=== PATIENT | male | born 1960 | race Caucasian/White ===

== ENCOUNTER → 2016-11-05 | Outpatient (REF) | payer MEDICARE, MEDICAID ==
[~2016-11-05] MED LIST: AMO250 PO; AMO500 PO; CELE40TA; CORTISSUSP OTIC; DEPA125C; FLONASESPR NASAL; PREVACID30 PO; PRILOSEC40 PO; SERO200T; SERO400T; SERZONE PO; TRAZ100T; VALIUM PO; ZANTAC300 PO; [UNRECOGNIZED DRUG - OTHER] OTIC
== END ==
LOC: M SMT 13:18
PROVIDERS: ATTEND Nurse Practitioner Women's Health
DX: R32 Unspecified urinary incontinence (principal)
CPT/HCPCS: 81001; 87086; G0463

== ENCOUNTER → 2017-03-08 | Outpatient (CLI) | payer MEDICARE, MEDICAID ==
[2017-03-08 12:14] LABS: MEAN CORPUSCULAR HGB CONC 34.1 g/dl (32.0-36.5); MEAN CORPUSCULAR VOLUME 96.7 fl (80.0-96.0); RED CELL DISTRIBUTION WIDTH 12.1 % (11.5-14.5); WHITE BLOOD COUNT 2.7 K/mm3 (4.0-10.0)
[2017-03-08 12:41] LABS: ALBUMIN 3.3 GM/DL (3.2-5.2); ALBUMIN/GLOBULIN RATIO 1.18 (1.00-1.93); ALKALINE PHOSPHATASE 36 U/L (45-117); ALT/SGPT 40 U/L (12-78); ANION GAP 5 MEQ/L (8-16); AST/SGOT 19 U/L (15-37); BILIRUBIN,TOTAL 0.6 MG/DL (0.2-1.0); BLOOD UREA NITROGEN 15 MG/DL (7-18); CALCIUM LEVEL 8.4 MG/DL (8.5-10.1); CARBON DIOXIDE LEVEL 32 MEQ/L (21-32); CHLORIDE LEVEL 104 MEQ/L (98-107); CHOLESTEROL LEVEL 131 MG/DL (<200); CREATININE FOR GFR 0.71 MG/DL (0.70-1.30); GLOMERULAR FILTRATION RATE > 60.0 (>56); GLUCOSE, FASTING 82 MG/DL (70-105); POTASSIUM SERUM 4.7 MEQ/L (3.5-5.1); SODIUM LEVEL 141 MEQ/L (136-145); TOTAL PROTEIN 6.1 GM/DL (6.4-8.2); TRIGLYCERIDES LEVEL 68 MG/DL (<150)
== END ==
LOC: M WUC 09:36
PROVIDERS: ATTEND Family Medicine
DX: Z51.81 Encounter for therapeutic drug level monitoring (principal); Z79.899 Other long term (current) drug therapy; E11.9 Type 2 diabetes mellitus without complications

== ENCOUNTER → 2017-07-02 | Outpatient (CLI) | payer MEDICARE, MEDICAID ==
[2017-07-02 12:03] LABS: PSA SCREENING 1.02 NG/ML (< 4.0)
== END ==
LOC: M SMT 09:27
DX: Z12.5 Encounter for screening for malignant neoplasm of prostate (principal)
CPT/HCPCS: G0103

== ENCOUNTER 2017-08-16 20:31 | Emergency (ER) | payer MEDICARE, MEDICAID ==
[2017-08-16] MEDS: TETANUS/DIPHTHERIA TOX ADSORB ADULT 0.5ML SYR/VIAL (90714) IM (21:51)
== END 2017-08-16 22:50 | disposition home or self-care (01) ==
LOC: M ED 20:31
DX: S01.01XA Laceration without foreign body of scalp, initial encounter (principal); Y04.0XXA Assault by unarmed brawl or fight, initial encounter; Y92.198 Other place in other specified residential institution as the place of occurrence of the external cause; E11.9 Type 2 diabetes mellitus without complications; F25.0 Schizoaffective disorder, bipolar type; F63.9 Impulse disorder, unspecified; Z79.899 Other long term (current) drug therapy
CPT/HCPCS: 90714

== ENCOUNTER 2017-12-04 08:13 | Day surgery (SDC) | payer MEDICARE, MEDICAID ==
[2017-12-04] MEDS ORDERED: NS 1,000 ML IV (09:00)
[2017-12-04] MEDS ORDERED: PROPOFOL 200 MG/20 ML VIAL As Ordered (09:24)
[2017-12-04] MEDS ORDERED: LIDOCAINE 2% INJ 100 MG/5 ML SDV (FOR ANES.) As Ordered (09:24)
== END 2017-12-04 09:50 | disposition home or self-care (01) ==
LOC: M OPP 08:13
DX: Z12.11 Encounter for screening for malignant neoplasm of colon (principal); I10 Essential (primary) hypertension; E78.5 Hyperlipidemia, unspecified; E11.9 Type 2 diabetes mellitus without complications; K21.9 Gastro-esophageal reflux disease without esophagitis; N40.1 Benign prostatic hyperplasia with lower urinary tract symptoms; F31.9 Bipolar disorder, unspecified; F41.9 Anxiety disorder, unspecified; G31.84 Mild cognitive impairment of uncertain or unknown etiology; Z79.899 Other long term (current) drug therapy; Z79.84 Long term (current) use of oral hypoglycemic drugs
CPT/HCPCS: 45378

== ENCOUNTER 2018-02-13 08:45 | Day surgery (SDC) | payer MEDICARE, MEDICAID ==
[~2018-02-13 08:45] MED LIST changes: -AMO250 PO; -AMO500 PO; -CELE40TA; -CORTISSUSP OTIC; -DEPA125C; -FLONASESPR NASAL; +LIDOCAINE 2% INJ 100 MG/5 ML SYRINGE As Ordered; -PREVACID30 PO; -PRILOSEC40 PO; +PROPOFOL 200 MG/20 ML VIAL As Ordered; -SERO200T; -SERO400T; -SERZONE PO; -TRAZ100T; -VALIUM PO; -ZANTAC300 PO; -[UNRECOGNIZED DRUG - OTHER] OTIC
[2018-02-13] MEDS: NS 1,000 ML IV (09:41)
== END 2018-02-13 10:57 | disposition home or self-care (01) ==
LOC: M OPP 08:45
DX: Z12.11 Encounter for screening for malignant neoplasm of colon (principal); K64.8 Other hemorrhoids; I10 Essential (primary) hypertension; E78.5 Hyperlipidemia, unspecified; E11.9 Type 2 diabetes mellitus without complications; K21.9 Gastro-esophageal reflux disease without esophagitis; R12 Heartburn; F41.9 Anxiety disorder, unspecified; F31.9 Bipolar disorder, unspecified; F63.9 Impulse disorder, unspecified; G31.84 Mild cognitive impairment of uncertain or unknown etiology; N40.1 Benign prostatic hyperplasia with lower urinary tract symptoms; R32 Unspecified urinary incontinence; Z79.899 Other long term (current) drug therapy
CPT/HCPCS: G0121

== ENCOUNTER → 2018-03-17 | Outpatient (CLI) | payer MEDICARE, MEDICAID ==
[2018-03-17 12:40] LABS: ESTIMATED AVERAGE GLUCOSE 111 MG/DL (60-110); HEMOGLOBIN A1c 5.5 %
[2018-03-17 12:41] LABS: ALBUMIN 3.4 GM/DL (3.2-5.2); ALKALINE PHOSPHATASE 37 U/L (45-117); ALT/SGPT 31 U/L (12-78); ANION GAP 8 MEQ/L (8-16); AST/SGOT 15 U/L (7-37); BILIRUBIN,TOTAL 0.5 MG/DL (0.2-1.0); BLOOD UREA NITROGEN 31 MG/DL (7-18); CALCIUM LEVEL 8.8 MG/DL (8.8-10.2); CARBON DIOXIDE LEVEL 29 MEQ/L (21-32); CHLORIDE LEVEL 110 MEQ/L (98-107); CREATININE FOR GFR 0.73 MG/DL (0.70-1.30); GLOMERULAR FILTRATION RATE > 60.0 (>49); GLUCOSE, FASTING 95 MG/DL (70-100); POTASSIUM SERUM 4.3 MEQ/L (3.5-5.1); SODIUM LEVEL 147 MEQ/L (136-145); TOTAL PROTEIN 6.5 GM/DL (6.4-8.2); VALPROIC ACID (DEPAKOTE) 49.7 UG/ML (50.0-100.0)
[2018-03-17 13:03] LABS: MALB URINE SIEMENS 8.5 MG/L; MAU/CREAT RATIO 4.2 MCG/MG (0.0-30.0)
== END ==
LOC: M WUC 08:45
DX: E11.9 Type 2 diabetes mellitus without complications (principal); Z79.899 Other long term (current) drug therapy
CPT/HCPCS: 82607

== ENCOUNTER → 2018-04-18 | Outpatient (CLI) | payer MEDICARE, MEDICAID ==
[2018-04-18 12:56] LABS: CHOLESTEROL LEVEL 137 MG/DL (<200); CHOLESTEROL RISK RATIO 2.075 (<5); HDL CHOLESTEROL 66 MG/DL (>40); LDL CHOLESTEROL 62 MG/DL (<100); NON-HDL-C 71 MG/DL; TRIGLYCERIDES LEVEL 46 MG/DL (<150)
== END ==
LOC: M WUC 08:58
DX: Z79.899 Other long term (current) drug therapy (principal)
CPT/HCPCS: 80061

== ENCOUNTER → 2018-10-31 | Outpatient (CLI) | payer MEDICARE, MEDICAID ==
[~2018-10-31] MED LIST changes: +AMO250 PO; +AMO500 PO; +BUPR10TASR PO; +CELE40TA PO; +CORTISSUSP OTIC; +DEPA125C; +DEPA250T32 PO; +DITR1TAB PO; +FINA5TAB2 PO; +FLONASESPR NASAL; +LATU40TA PO; -LIDOCAINE 2% INJ 100 MG/5 ML SYRINGE As Ordered; +METF-414 PO; +MINI1CAP PO; +PREVACID30 PO; +PRILOSEC40 PO; -PROPOFOL 200 MG/20 ML VIAL As Ordered; +RANI15TA PO; +RISP2TAB3 PO; +SERO200T; +SERO400T; +SERZONE PO; +TRAZ100T; +VALIUM PO; +ZANTAC300 PO; +[UNRECOGNIZED DRUG - OTHER] OTIC
[2018-10-31 18:11] LABS: ALBUMIN 3.1 GM/DL (3.2-5.2); BILIRUBIN,DIRECT 0.1 MG/DL (0.0-0.2); BILIRUBIN,TOTAL 0.3 MG/DL (0.2-1.0); TOTAL PROTEIN 6.1 GM/DL (6.4-8.2); VALPROIC ACID (DEPAKOTE) 72.8 UG/ML (50.0-100.0)
== END ==
LOC: M WUC 16:29
PROVIDERS: ATTEND Psychiatry & Neurology Psychiatry
DX: Z79.899 Other long term (current) drug therapy (principal)

== ENCOUNTER → 2018-11-06 | Outpatient (CLI) | payer MEDICARE, MEDICAID | LOC: M WUC 08:45 | PROVIDERS: ATTEND Nurse Practitioner Women's Health | DX: Z12.5 Encounter for screening for malignant neoplasm of prostate (principal) | CPT/HCPCS: 36415; G0103 ==

== ENCOUNTER → 2019-02-19 | Outpatient (CLI) | payer MEDICARE, MEDICAID ==
[2019-02-19 11:26] LABS: BASO % 0.3 % (0.0-1.0); EOS % 1.3 % (0.0-3.0); HEMATOCRIT 36.8 % (42.0-52.0); HEMOGLOBIN 12.3 g/dl (13.5-17.5); LYMPH # 1.3 10^3/uL (1.5-4.5); LYMPH % 42.8 % (24.0-44.0); MEAN CORPUSCULAR HEMOGLOBIN 31.3 pg (27.0-33.0); MEAN CORPUSCULAR HGB CONC 33.4 g/dl (32.0-36.5); MEAN CORPUSCULAR VOLUME 93.6 fl (80.0-96.0); MONO # 0.4 10^3/uL (0.0-0.8); MONO % 14.1 % (0.0-5.0); NEUTROPHILS # 1.3 10^3/uL (1.8-7.7); NEUTROPHILS % 41.2 % (36.0-66.0); PLATELET COUNT, AUTOMATED 149 10^3/uL (150-450); RED BLOOD COUNT 3.93 10^6/uL (4.30-6.10); WHITE BLOOD COUNT 3.1 10^3/uL (4.0-10.0)
[2019-02-19 11:35] LABS: ALBUMIN 3.3 GM/DL (3.2-5.2); ALT/SGPT 22 U/L (12-78); BILIRUBIN,TOTAL 0.5 MG/DL (0.2-1.0); BLOOD UREA NITROGEN 21 MG/DL (7-18); CALCIUM LEVEL 8.9 MG/DL (8.8-10.2); CARBON DIOXIDE LEVEL 30 MEQ/L (21-32); CHLORIDE LEVEL 109 MEQ/L (98-107); CHOLESTEROL LEVEL 106 MG/DL (<200); CHOLESTEROL RISK RATIO 1.682 (<5); CREATININE FOR GFR 0.72 MG/DL (0.70-1.30); GLOMERULAR FILTRATION RATE > 60.0 (>49); GLUCOSE, FASTING 101 MG/DL (70-100); HDL CHOLESTEROL 63 MG/DL (>40); LDL CHOLESTEROL 30 MG/DL (<100); NON-HDL-C 43 MG/DL; POTASSIUM SERUM 4.1 MEQ/L (3.5-5.1); SODIUM LEVEL 142 MEQ/L (136-145); TOTAL PROTEIN 6.1 GM/DL (6.4-8.2); TRIGLYCERIDES LEVEL 64 MG/DL (<150); VALPROIC ACID (DEPAKOTE) 56.3 UG/ML (50.0-100.0)
[2019-02-19 11:44] LABS: HEMOGLOBIN A1c 6.1 %
[2019-02-19 12:34] LABS: MALB URINE SIEMENS 6.6 MG/L; MAU/CREAT RATIO 5.1 MCG/MG (0.0-30.0)
== END ==
LOC: M WUC 08:39
PROVIDERS: ATTEND Family Medicine
DX: Z79.899 Other long term (current) drug therapy (principal); E11.9 Type 2 diabetes mellitus without complications

== ENCOUNTER 2019-08-12 14:15 | Emergency (ER) | payer MEDICARE, MEDICAID ==
[2019-08-12] MEDS ORDERED: CRES5TAB PO (15:33)
[2019-08-12] MEDS ORDERED: FAMO40TA3 PO (15:33)
[2019-08-12] MEDS ORDERED: WELL100T2 PO (15:33)
[2019-08-12 17:39] LABS: BASO % 0.2 % (0.0-1.0); EOS % 0.7 % (0.0-3.0); HEMATOCRIT 39.7 % (42.0-52.0); HEMOGLOBIN 13.1 g/dl (13.5-17.5); LYMPH # 1.9 10^3/uL (1.5-5.0); LYMPH % 44.5 % (24.0-44.0); MEAN CORPUSCULAR HEMOGLOBIN 31.2 pg (27.0-33.0); MEAN CORPUSCULAR VOLUME 94.5 fl (80.0-96.0); MONO # 0.5 10^3/uL (0.0-0.8); MONO % 12.6 % (0.0-5.0); NEUTROPHILS # 1.8 10^3/uL (1.5-8.5); PLATELET COUNT, AUTOMATED 183 10^3/uL (150-450); WHITE BLOOD COUNT 4.2 10^3/uL (4.0-10.0)
[2019-08-12 18:11] LABS: ALBUMIN 3.6 GM/DL (3.2-5.2); ALT/SGPT 25 U/L (12-78); BILIRUBIN,DIRECT 0.2 MG/DL (0.0-0.2); BILIRUBIN,TOTAL 0.4 MG/DL (0.2-1.0); BLOOD UREA NITROGEN 16 MG/DL (7-18); CALCIUM LEVEL 9.1 MG/DL (8.8-10.2); CARBON DIOXIDE LEVEL 30 MEQ/L (21-32); CHLORIDE LEVEL 105 MEQ/L (98-107); CK-MB VALUE MASS 2.6 NG/ML (<3.6); CPK CREATINE PHOSPHOKINASE 107 U/L (39-308); CREATININE FOR GFR 0.73 MG/DL (0.70-1.30); GLOMERULAR FILTRATION RATE > 60.0 (>49); GLUCOSE, FASTING 84 MG/DL (70-100); LIPASE 188 U/L (73-393); MB/CK RELATIVE INDEX 2.43 (< OR =4); POTASSIUM SERUM 4.3 MEQ/L (3.5-5.1); SODIUM LEVEL 143 MEQ/L (136-145); TOTAL PROTEIN 6.6 GM/DL (6.4-8.2); TROPONIN I < 0.02 NG/ML (< 0.10)
[2019-08-12 18:50] VITALS: BP 124/78
--- NOTE | 2019-08-13 05:49 | ECGEPIP ---
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
== END 2019-08-12 19:06 | disposition home or self-care (01) ==
LOC: EDBD 14:15 → M ED 14:15
DX: R07.89 Other chest pain (principal); E11.9 Type 2 diabetes mellitus without complications; F41.9 Anxiety disorder, unspecified; K21.9 Gastro-esophageal reflux disease without esophagitis; N40.0 Benign prostatic hyperplasia without lower urinary tract symptoms; R56.9 Unspecified convulsions; Z79.899 Other long term (current) drug therapy

== ENCOUNTER → 2019-08-24 | Outpatient (REF) | payer MEDICARE, MEDICAID ==
[~2019-08-24] MED LIST changes: +CRES5TAB PO; +FAMO40TA3 PO; +WELL100T2 PO
[2019-08-24 21:00] LABS: AMORPHOUS SEDIMENT LARGE (NEGATIVE); APPEARANCE, URINE TURBID (CLEAR); BACTERIA, URINE AUTO NEGATIVE (NEGATIVE); BILIRUBIN, URINE AUTO NEGATIVE (NEGATIVE); BLOOD, URINE BLOOD NEGATIVE (NEGATIVE); CALCIUM OXALATE CRYSTALS SMALL; COLOR, URINE AMBER (YELLOW); GLUCOSE, URINE (UA) AUTO NEGATIVE (NEGATIVE); KETONE, URINE AUTO TRACE mg/dL (NEGATIVE); LEUKOCYTE ESTERASE, URINE AUTO NEGATIVE (NEGATIVE); MUCUS, URINE SMALL (NEGATIVE); NITRITE, URINE AUTO NEGATIVE (NEGATIVE); PROTEIN, URINE AUTO 1+ mg/dL (NEGATIVE); RBC, URINE AUTO 1 /HPF (0-3); SPECIFIC GRAVITY URINE AUTO 1.034 (1.002-1.035); SQUAMOUS EPITHELIAL CELL UR AU 0 /HPF (0-6); WBC, URINE AUTO 0 /HPF (0-3)
== END ==
LOC: M LAB REF 20:35 → M LAB 20:35
PROVIDERS: ATTEND Family Medicine
DX: N42.9 Disorder of prostate, unspecified (principal)

== ENCOUNTER → 2019-12-29 | Outpatient (CLI) | payer MEDICARE, MEDICAID | LOC: M WUC 08:34 | PROVIDERS: ATTEND Nurse Practitioner Women's Health | DX: Z12.5 Encounter for screening for malignant neoplasm of prostate (principal) | CPT/HCPCS: 36415; G0103 ==

== ENCOUNTER → 2020-04-11 | Outpatient (CLI) | payer MEDICARE, MEDICAID ==
[2020-04-11 10:56] LABS: HEMATOCRIT 39.5 % (42.0-52.0); HEMOGLOBIN 12.7 g/dl (13.5-17.5); MEAN CORPUSCULAR HEMOGLOBIN 31.5 pg (27.0-33.0); MEAN CORPUSCULAR HGB CONC 32.2 g/dl (32.0-36.5); PLATELET COUNT, AUTOMATED 127 10^3/uL (150-450); RED BLOOD COUNT 4.03 10^6/uL (4.30-6.10)
[2020-04-11 11:22] LABS: HEMOGLOBIN A1c 5.3 %
[2020-04-11 11:23] LABS: ALBUMIN 3.2 GM/DL (3.2-5.2); ALT/SGPT 27 U/L (12-78); BILIRUBIN,TOTAL 0.5 MG/DL (0.2-1.0); BLOOD UREA NITROGEN 23 MG/DL (7-18); CALCIUM LEVEL 8.6 MG/DL (8.8-10.2); CARBON DIOXIDE LEVEL 32 MEQ/L (21-32); CHLORIDE LEVEL 107 MEQ/L (98-107); CHOLESTEROL LEVEL 107 MG/DL (<200); CHOLESTEROL RISK RATIO 1.621 (<5); CREATININE FOR GFR 0.67 MG/DL (0.70-1.30); GLOMERULAR FILTRATION RATE > 60.0 (>49); GLUCOSE, FASTING 70 MG/DL (70-100); HDL CHOLESTEROL 66 MG/DL (>40); LDL CHOLESTEROL 30 MG/DL (<100); NON-HDL-C 41 MG/DL; POTASSIUM SERUM 4.2 MEQ/L (3.5-5.1); SODIUM LEVEL 143 MEQ/L (136-145); TOTAL PROTEIN 5.8 GM/DL (6.4-8.2); TRIGLYCERIDES LEVEL 57 MG/DL (<150); VALPROIC ACID (DEPAKOTE) 75.5 UG/ML (50.0-100.0)
[2020-04-11 11:31] LABS: MAU/CREAT RATIO 5.2 MCG/MG (0.0-30.0)
[2020-04-11 11:42] LABS: HEPATITIS B SURFACE ANTIGEN NEGATIVE (NEGATIVE)
== END ==
LOC: M WUC 08:34
PROVIDERS: ATTEND Family Medicine
DX: Z11.59 Encounter for screening for other viral diseases (principal); E11.9 Type 2 diabetes mellitus without complications; Z79.899 Other long term (current) drug therapy

== ENCOUNTER → 2020-04-18 | Outpatient (CLI) | payer MEDICARE, MEDICAID ==
[2020-04-18 18:22] LABS: BASO % 0.4 % (0.0-1.0); EOS # 0.1 10^3/uL (0.0-0.5); EOS % 1.6 % (0.0-3.0); HEMATOCRIT 38.5 % (42.0-52.0); HEMOGLOBIN 12.2 g/dl (13.5-17.5); LYMPH # 2.1 10^3/uL (1.5-5.0); LYMPH % 45.8 % (24.0-44.0); MEAN CORPUSCULAR HEMOGLOBIN 30.6 pg (27.0-33.0); MEAN CORPUSCULAR HGB CONC 31.7 g/dl (32.0-36.5); MEAN CORPUSCULAR VOLUME 96.5 fl (80.0-96.0); MONO # 0.5 10^3/uL (0.0-0.8); MONO % 11.4 % (0.0-5.0); NEUTROPHILS # 1.8 10^3/uL (1.5-8.5); NEUTROPHILS % 40.4 % (36.0-66.0); PLATELET COUNT, AUTOMATED 142 10^3/uL (150-450); RED BLOOD COUNT 3.99 10^6/uL (4.30-6.10); WHITE BLOOD COUNT 4.5 10^3/uL (4.0-10.0)
== END ==
LOC: M LAB 17:21
PROVIDERS: ATTEND Family Medicine
DX: D61.818 Other pancytopenia (principal)

== ENCOUNTER → 2020-06-07 | Outpatient (CLI) | payer MEDICARE, MEDICAID ==
[~2020-06-07] MED LIST changes: +RISP-9 PO; -RISP2TAB3 PO
[2020-06-07 11:59] LABS: BASO % 0.3 % (0.0-1.0); EOS % 1.4 % (0.0-3.0); HEMATOCRIT 38.6 % (42.0-52.0); HEMOGLOBIN 12.5 g/dl (13.5-17.5); LYMPH # 1.2 10^3/uL (1.5-5.0); LYMPH % 42.2 % (24.0-44.0); MEAN CORPUSCULAR HEMOGLOBIN 31.3 pg (27.0-33.0); MEAN CORPUSCULAR HGB CONC 32.4 g/dl (32.0-36.5); MEAN CORPUSCULAR VOLUME 96.5 fl (80.0-96.0); MONO # 0.3 10^3/uL (0.0-0.8); MONO % 10.5 % (0.0-5.0); NEUTROPHILS # 1.3 10^3/uL (1.5-8.5); NEUTROPHILS % 45.6 % (36.0-66.0); PLATELET COUNT, AUTOMATED 151 10^3/uL (150-450); WHITE BLOOD COUNT 2.9 10^3/uL (4.0-10.0)
[2020-06-07 12:42] LABS: BLOOD UREA NITROGEN 19 MG/DL (7-18); CALCIUM LEVEL 8.7 MG/DL (8.8-10.2); CARBON DIOXIDE LEVEL 27 MEQ/L (21-32); CHLORIDE LEVEL 108 MEQ/L (98-107); CREATININE FOR GFR 0.72 MG/DL (0.70-1.30); GLOMERULAR FILTRATION RATE > 60.0 (>49); GLUCOSE, FASTING 127 MG/DL (70-100); SODIUM LEVEL 139 MEQ/L (136-145)
== END ==
LOC: M WUC 09:10
PROVIDERS: ATTEND Family Medicine
DX: D61.818 Other pancytopenia (principal); R79.89 Other specified abnormal findings of blood chemistry

== ENCOUNTER → 2020-09-02 | Outpatient (CLI) | payer MEDICARE, MEDICAID ==
[~2020-09-02] MED LIST changes: +COPP2TAB PO; +CYCL5TAB PO; +OMEP-218 PO
[2020-09-02 09:51] LABS: HEMOGLOBIN A1c 5.3 %
[2020-09-02 09:55] LABS: ALT/SGPT 31 U/L (12-78); BILIRUBIN,TOTAL 0.5 MG/DL (0.2-1.0); BLOOD UREA NITROGEN 23 MG/DL (7-18); CALCIUM LEVEL 8.7 MG/DL (8.8-10.2); CARBON DIOXIDE LEVEL 33 MEQ/L (21-32); CHLORIDE LEVEL 105 MEQ/L (98-107); CHOLESTEROL LEVEL 132 MG/DL (<200); CHOLESTEROL RISK RATIO 1.913 (<5); CREATININE FOR GFR 0.82 MG/DL (0.70-1.30); GLOMERULAR FILTRATION RATE > 60.0 (>49); GLUCOSE, FASTING 82 MG/DL (70-100); HDL CHOLESTEROL 69 MG/DL (>40); LDL CHOLESTEROL 51 MG/DL (<100); NON-HDL-C 63 MG/DL; POTASSIUM SERUM 4.6 MEQ/L (3.5-5.1); SODIUM LEVEL 140 MEQ/L (136-145); TOTAL PROTEIN 6.6 GM/DL (6.4-8.2); TRIGLYCERIDES LEVEL 60 MG/DL (<150)
[2020-09-02 09:56] LABS: ALBUMIN 3.6 GM/DL (3.2-5.2)
== END ==
LOC: M LAB 09:03
PROVIDERS: ATTEND Internal Medicine
DX: E78.5 Hyperlipidemia, unspecified (principal); E11.9 Type 2 diabetes mellitus without complications

== ENCOUNTER → 2021-02-13 | Outpatient (REF) | payer MEDICARE, MEDICAID | LOC: M LAB REF 09:01 | PROVIDERS: ATTEND Nurse Practitioner Women's Health | DX: Z12.5 Encounter for screening for malignant neoplasm of prostate (principal) ==

== ENCOUNTER → 2021-04-02 | Outpatient (CLI) | payer MEDICARE, MEDICAID ==
[~2021-04-02] MED LIST changes: +HYDR50TA70; +RISP-7
[2021-04-02 16:42] LABS: ALBUMIN 3.2 GM/DL (3.2-5.2); ALT/SGPT 35 U/L (12-78); BILIRUBIN,TOTAL 0.3 MG/DL (0.2-1.0); BLOOD UREA NITROGEN 27 MG/DL (7-18); CALCIUM LEVEL 8.8 MG/DL (8.8-10.2); CARBON DIOXIDE LEVEL 31 MEQ/L (21-32); CHLORIDE LEVEL 105 MEQ/L (98-107); CHOLESTEROL LEVEL 121 MG/DL (<200); CHOLESTEROL RISK RATIO 1.728 (<5); CREATININE FOR GFR 0.67 MG/DL (0.70-1.30); GLOMERULAR FILTRATION RATE > 60.0 (>49); GLUCOSE, FASTING 92 MG/DL (70-100); HDL CHOLESTEROL 70 MG/DL (>40); LDL CHOLESTEROL 25 MG/DL (<100); NON-HDL-C 51 MG/DL; POTASSIUM SERUM 4.3 MEQ/L (3.5-5.1); SODIUM LEVEL 142 MEQ/L (136-145); TOTAL PROTEIN 6.2 GM/DL (6.4-8.2); TRIGLYCERIDES LEVEL 128 MG/DL (<150)
== END ==
LOC: M WUC 14:29
PROVIDERS: ATTEND Internal Medicine
DX: E78.5 Hyperlipidemia, unspecified (principal)

== ENCOUNTER → 2021-04-04 | Outpatient (CLI) | payer MEDICARE, MEDICAID ==
--- NOTE | 2021-04-04 12:33 | REP ---
INDICATION: PAIN COMPARISON: None. TECHNIQUE: Internal rotation, external rotation, and Y view. FINDINGS: Cortical irregularity and spurring along with small 5 mm corticated density noted at the acromioclavicular joint. The subacromial space is normal. The glenohumeral joint is essentially age-appropriate. There is no evidence for acute fracture or dislocation. 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 <Electronically signed by Geovani Boyd > 04/04/21 [id number]
== END ==
LOC: M WUC 11:30
PROVIDERS: ATTEND Internal Medicine
DX: M25.512 Pain in left shoulder (principal)

== ENCOUNTER → 2021-06-20 | Outpatient (CLI) | payer MEDICARE, MEDICAID ==
[2021-06-20 16:21] LABS: BASO % 0.2 % (0.0-1.0); EOS # 0.1 10^3/uL (0.0-0.5); EOS % 1.7 % (0.0-3.0); HEMATOCRIT 40.8 % (42.0-52.0); HEMOGLOBIN 13.2 g/dl (13.5-17.5); LYMPH # 1.9 10^3/uL (1.5-5.0); LYMPH % 47.4 % (24.0-44.0); MEAN CORPUSCULAR HEMOGLOBIN 30.8 pg (27.0-33.0); MEAN CORPUSCULAR HGB CONC 32.4 g/dl (32.0-36.5); MEAN CORPUSCULAR VOLUME 95.1 fl (80.0-96.0); MONO # 0.5 10^3/uL (0.0-0.8); MONO % 13.5 % (2.0-8.0); NEUTROPHILS # 1.5 10^3/uL (1.5-8.5); PLATELET COUNT, AUTOMATED 145 10^3/uL (150-450); RED BLOOD COUNT 4.29 10^6/uL (4.30-6.10)
[2021-06-20 16:40] LABS: HEMOGLOBIN A1c 5.4 %
[2021-06-20 16:53] LABS: ALBUMIN 3.4 GM/DL (3.2-5.2); ALT/SGPT 29 U/L (12-78); BILIRUBIN,TOTAL 0.4 MG/DL (0.2-1.0); BLOOD UREA NITROGEN 21 MG/DL (7-18); CALCIUM LEVEL 8.9 MG/DL (8.8-10.2); CARBON DIOXIDE LEVEL 33 MEQ/L (21-32); CHLORIDE LEVEL 107 MEQ/L (98-107); CHOLESTEROL LEVEL 121 MG/DL (<200); CREATININE FOR GFR 0.81 MG/DL (0.70-1.30); GLOMERULAR FILTRATION RATE > 60.0 (>49); GLUCOSE, FASTING 72 MG/DL (70-100); HDL CHOLESTEROL 63 MG/DL (>40); LDL CHOLESTEROL 38 MG/DL (<100); NON-HDL-C 58 MG/DL; POTASSIUM SERUM 4.4 MEQ/L (3.5-5.1); SODIUM LEVEL 142 MEQ/L (136-145); TOTAL PROTEIN 6.3 GM/DL (6.4-8.2); TRIGLYCERIDES LEVEL 100 MG/DL (<150); VALPROIC ACID (DEPAKOTE) 92.2 UG/ML (50.0-100.0)
[2021-06-20 16:59] LABS: PROLACTIN 30.7 NG/ML (2.1-17.7)
== END ==
LOC: M WUC 10:31
PROVIDERS: ATTEND Physician Assistant
DX: Z79.899 Other long term (current) drug therapy (principal)

== ENCOUNTER → 2021-08-27 | Outpatient (CLI) | payer MEDICARE, MEDICAID ==
[~2021-08-27] MED LIST changes: -LATU40TA PO; +LATU40TA2 PO; +OMEP-173 PO; -OMEP-218 PO
== END ==
LOC: M WUC 11:44
PROVIDERS: ATTEND Nurse Practitioner Women's Health
DX: R97.20 Elevated prostate specific antigen [PSA] (principal)

== ENCOUNTER 2021-10-01 10:25 | Emergency (ER) | payer MEDICARE, MEDICAID ==
[~2021-10-01] VITALS: Ht 177.8 cm; Wt 82.0 kg
[~2021-10-01 10:25] MED LIST changes: -HYDR50TA70; +HYDR50TA70 PO; -RISP-7; +RISP-7 PO
[2021-10-01 13:13] LABS: HEMATOCRIT 38.9 % (42.0-52.0); HEMOGLOBIN 13.7 g/dl (13.5-17.5); MEAN CORPUSCULAR HEMOGLOBIN 32.2 pg (27.0-33.0); MEAN CORPUSCULAR HGB CONC 35.2 g/dl (32.0-36.5); MEAN CORPUSCULAR VOLUME 91.5 fl (80.0-96.0); PLATELET COUNT, AUTOMATED 186 10^3/uL (150-450); RED BLOOD COUNT 4.25 10^6/uL (4.30-6.10); WHITE BLOOD COUNT 4.1 10^3/uL (4.0-10.0)
[2021-10-01 13:43] LABS: ACETAMINOPHEN LEVEL < 2.0 UG/ML (10.0-30.0); ALBUMIN 3.4 GM/DL (3.2-5.2); ALT/SGPT 25 U/L (12-78); BILIRUBIN,DIRECT 0.2 MG/DL (0.0-0.2); BILIRUBIN,TOTAL 0.6 MG/DL (0.2-1.0); BLOOD UREA NITROGEN 13 MG/DL (7-18); CALCIUM LEVEL 8.6 MG/DL (8.8-10.2); CARBON DIOXIDE LEVEL 28 MEQ/L (21-32); CHLORIDE LEVEL 108 MEQ/L (98-107); CREATININE FOR GFR 0.69 MG/DL (0.70-1.30); ETHYL ALCOHOL (ETHANOL) < 0.003 % (0.000-0.010); GLOMERULAR FILTRATION RATE > 60.0 (>49); GLUCOSE, FASTING 95 MG/DL (70-100); POTASSIUM SERUM 4.1 MEQ/L (3.5-5.1); SALICYLATE LEVEL < 1.7 MG/DL (5.0-30.0); SODIUM LEVEL 140 MEQ/L (136-145); TOTAL PROTEIN 6.3 GM/DL (6.4-8.2)
[2021-10-01 13:44] LABS: AMPHETAMINES LEVEL URINE NEGATIVE (NEGATIVE); BARBITURATES URINE NEGATIVE (NEGATIVE); BENZODIAZEPINES URINE NEGATIVE (NEGATIVE); CANNABINOIDS URINE NEGATIVE (NEGATIVE); COCAINE METABOLITE URINE NEGATIVE (NEGATIVE); METHADONE URINE NEGATIVE (NEGATIVE); OPIATES URINE NEGATIVE (NEGATIVE); PHENCYCLIDINE URINE NEGATIVE (NEGATIVE)
[2021-10-01 13:48] LABS: RSV AMPLIFICATION NEGATIVE (NEGATIVE)
[2021-10-01] MEDS ORDERED: DIVA250T7 PO (14:39)
[2021-10-01] MEDS ORDERED: OXYB10TA23 PO (14:39)
[2021-10-01] MEDS ORDERED: CITA20TA7 PO (14:39)
[2021-10-01] MEDS ORDERED: SYST1SOL4 OU (14:39)
[2021-10-01] MEDS ORDERED: RISP-9 PO (14:39)
[2021-10-01] MEDS ORDERED: COPP2CAP PO (14:39)
[2021-10-01] MEDS ORDERED: SENN-80 PO (14:39)
[2021-10-01] MEDS ORDERED: HOME MED LIST COMPLETE! XX SCH (14:45)
[2021-10-01 20:39] LABS: VALPROIC ACID (DEPAKOTE) 89.9 UG/ML (50.0-100.0)
[2021-10-01] MEDS ORDERED: PRAZOSIN 1 MG CAP PO ONE (22:20)
[2021-10-01] MEDS ORDERED: DIVALPROEX 250MG *ER* TAB PO ONE (22:20)
[2021-10-01] MEDS ORDERED: hydrOXYzine 50 MG TAB PO ONE (22:20)
[2021-10-01] MEDS ORDERED: FINASTERIDE 5MG TAB PO ONE (22:20)
[2021-10-01] MEDS ORDERED: ROSUVASTATIN 10 MG TAB (CRESTOR) PO ONE (22:20)
[2021-10-01] MEDS ORDERED: oxyBUTYnin *DITROPAN XL* 5 MG TABCR PO ONE (22:20)
[2021-10-01] MEDS ORDERED: risperiDONE 2 MG TAB PO ONE (22:20)
[2021-10-01] MEDS ORDERED: buPROPion (WELLBUTRIN SR) 100 MG SR TAB PO ONE (22:20)
[2021-10-01 22:56] VITALS: BP 113/63
[2021-10-02] MEDS ORDERED: buPROPion (WELLBUTRIN SR) 100 MG SR TAB PO SCH (09:00)
[2021-10-02] MEDS ORDERED: OMEPRAZOLE 20MG CAP PO ONE (10:20)
[2021-10-02] MEDS ORDERED: DIVALPROEX 250MG *ER* TAB PO ONE (10:20)
[2021-10-02] MEDS ORDERED: risperiDONE 0.5 MG TAB PO ONE (10:20)
[2021-10-02 15:39] VITALS: BP 104/62
== END 2021-10-02 15:43 ==
LOC: M ED 10:25
DX: R45.851 Suicidal ideations (principal); F20.9 Schizophrenia, unspecified; E11.9 Type 2 diabetes mellitus without complications; E78.5 Hyperlipidemia, unspecified; K21.9 Gastro-esophageal reflux disease without esophagitis; F79 Unspecified intellectual disabilities; Z79.899 Other long term (current) drug therapy

== ENCOUNTER → 2022-01-09 | Outpatient (REF) | payer MEDICARE, MEDICAID ==
[~2022-01-09] MED LIST changes: +BUSP5TA PO; +CITA20TA7 PO; +COPP2CAP PO; +DIVA250T7 PO; +DOCU100C16 PO; +OXYB10TA23 PO; +PATIENT COMMENT; +SENN-80 PO; +SYST1SOL4 OU; +SYSTANE; +SYSTOIN TOP
[2022-01-09 15:58] LABS: APPEARANCE, URINE CLEAR (CLEAR); BACTERIA, URINE AUTO NEGATIVE (NEGATIVE); BILIRUBIN, URINE AUTO NEGATIVE (NEGATIVE); BLOOD, URINE BLOOD NEGATIVE (NEGATIVE); COLOR, URINE YELLOW (YELLOW); GLUCOSE, URINE (UA) AUTO 1+ mg/dL (NEGATIVE); KETONE, URINE AUTO TRACE mg/dL (NEGATIVE); LEUKOCYTE ESTERASE, URINE AUTO NEGATIVE (NEGATIVE); NITRITE, URINE AUTO NEGATIVE (NEGATIVE); PROTEIN, URINE AUTO NEGATIVE (NEGATIVE); RBC, URINE AUTO 0 /HPF (0-3); SPECIFIC GRAVITY URINE AUTO 1.023 (1.002-1.035); SQUAMOUS EPITHELIAL CELL UR AU 0 /HPF (0-6); UROBILINOGEN, URINE AUTO 0.2 mg/dL (0.0-2.0); WBC, URINE AUTO 0 /HPF (0-3)
== END ==
LOC: M SMT 15:02
PROVIDERS: ATTEND Nurse Practitioner Women's Health
DX: R39.15 Urgency of urination (principal)

== ENCOUNTER 2022-01-16 11:01 | Inpatient (IN) | payer MEDICARE, MEDICAID ==
[~2022-01-16] VITALS: Ht 177.8 cm; Wt 90.0 kg
[~2022-01-16 11:01] MED LIST changes: -DOCU100C16 PO; -PATIENT COMMENT; -SYSTANE; -SYSTOIN TOP
[2022-01-16 11:54] LABS: HEMATOCRIT 38.7 % (42.0-52.0); HEMOGLOBIN 13.1 g/dl (13.5-17.5); MEAN CORPUSCULAR HEMOGLOBIN 30.7 pg (27.0-33.0); MEAN CORPUSCULAR HGB CONC 33.9 g/dl (32.0-36.5); MEAN CORPUSCULAR VOLUME 90.6 fl (80.0-96.0); PLATELET COUNT, AUTOMATED 196 10^3/uL (150-450); RED BLOOD COUNT 4.27 10^6/uL (4.30-6.10); WHITE BLOOD COUNT 3.5 10^3/uL (4.0-10.0)
[2022-01-16 12:26] LABS: ACETAMINOPHEN LEVEL 4.5 UG/ML (10.0-30.0); ALBUMIN 3.5 GM/DL (3.2-5.2); ALT/SGPT 17 U/L (12-78); BILIRUBIN,DIRECT 0.1 MG/DL (0.0-0.2); BILIRUBIN,TOTAL 0.4 MG/DL (0.2-1.0); BLOOD UREA NITROGEN 20 MG/DL (7-18); CARBON DIOXIDE LEVEL 27 MEQ/L (21-32); CHLORIDE LEVEL 110 MEQ/L (98-107); CREATININE FOR GFR 0.77 MG/DL (0.70-1.30); ETHYL ALCOHOL (ETHANOL) < 0.003 % (0.000-0.010); GLOMERULAR FILTRATION RATE > 60.0 (>49); GLUCOSE, FASTING 111 MG/DL (70-100); POTASSIUM SERUM 4.5 MEQ/L (3.5-5.1); SALICYLATE LEVEL < 1.7 MG/DL (5.0-30.0); SODIUM LEVEL 141 MEQ/L (136-145); TOTAL PROTEIN 6.5 GM/DL (6.4-8.2)
[2022-01-16 12:30] LABS: RSV AMPLIFICATION NEGATIVE (NEGATIVE)
[2022-01-16 12:32] LABS: AMPHETAMINES LEVEL URINE NEGATIVE (NEGATIVE); BARBITURATES URINE NEGATIVE (NEGATIVE); BENZODIAZEPINES URINE NEGATIVE (NEGATIVE); CANNABINOIDS URINE NEGATIVE (NEGATIVE); COCAINE METABOLITE URINE NEGATIVE (NEGATIVE); METHADONE URINE NEGATIVE (NEGATIVE); OPIATES URINE NEGATIVE (NEGATIVE); PHENCYCLIDINE URINE NEGATIVE (NEGATIVE)
[2022-01-16] MEDS ORDERED: DOCU100C16 PO (19:46)
[2022-01-16] MEDS ORDERED: SYSTOIN TOP (19:46)
[2022-01-16] MEDS ORDERED: SYSTANE (19:46)
[2022-01-16] MEDS ORDERED: PATIENT COMMENT (19:51)
[2022-01-16] MEDS ORDERED: HOME MED LIST COMPLETE! XX SCH (19:55)
[2022-01-17] MEDS ORDERED: KETOROLAC 30 MG/ML 1ML VIAL IM ONE (08:10)
[2022-01-17 14:28] VITALS: BP 118/72
[2022-01-17] MEDS ORDERED: traZODone 50 MG TAB PO PRN (14:30)
[2022-01-17] MEDS ORDERED: MAALOX 30 ML SUSP *UDC PO PRN (14:30)
[2022-01-17] MEDS ORDERED: MOM 30ML SUSPENSION UDC PO PRN (14:30)
[2022-01-17] MEDS: ACETAMINOPHEN TAB 650MG DOSE (2X325MG) PO PRN (14:56)
[2022-01-17 17:51] LABS: HEMOGLOBIN A1c 6.2 %
[2022-01-17] MEDS: DOCUSATE SODIUM 100MG CAPSULE PO SCH (21:15)
[2022-01-17] MEDS: FINASTERIDE 5MG TAB PO SCH (21:15)
[2022-01-17] MEDS: ROSUVASTATIN 10 MG TAB (CRESTOR) PO SCH (21:15)
[2022-01-17] MEDS: risperiDONE 2 MG TAB PO SCH (21:16)
[2022-01-17] MEDS: DIVALPROEX 250MG *ER* TAB PO SCH (21:16)
[2022-01-17] MEDS: SENNA 8.6 MG TAB (SENOKOT) PO SCH (21:16)
[2022-01-17] MEDS: PRAZOSIN 1 MG CAP PO SCH (21:16)
[2022-01-17] MEDS: buPROPion (WELLBUTRIN SR) 100 MG SR TAB PO SCH (21:16)
[2022-01-17] MEDS: busPIRone 5 MG TAB PO SCH (21:16)
[2022-01-17] MEDS: oxyBUTYnin *DITROPAN XL* 5 MG TABCR PO SCH (21:16)
[2022-01-18 06:17] VITALS: BP 142/72
[2022-01-18] MEDS ORDERED: risperiDONE 0.5 MG TAB PO SCH (09:00)
[2022-01-18] MEDS: NICOTINE 21MG/24HR 1 EA TRANSDERMAL TD SCH (09:00)
[2022-01-18] MEDS: buPROPion (WELLBUTRIN SR) 100 MG SR TAB PO SCH ×2 (09:49→21:14)
[2022-01-18] MEDS: busPIRone 5 MG TAB PO SCH ×2 (09:49→21:16)
[2022-01-18] MEDS: OMEPRAZOLE 20MG CAP PO SCH (09:49)
[2022-01-18] MEDS: SENNA 8.6 MG TAB (SENOKOT) PO SCH ×2 (09:49→21:14)
[2022-01-18] MEDS: DIVALPROEX 250MG *ER* TAB PO SCH ×2 (09:49→21:14)
[2022-01-18] MEDS: DOCUSATE SODIUM 100MG CAPSULE PO SCH ×2 (09:49→21:00)
[2022-01-18] MEDS: ACETAMINOPHEN TAB 650MG DOSE (2X325MG) PO PRN (12:32)
[2022-01-18] MEDS: metFORMIN (GLUCOPHAGE) 500MG TAB PO SCH (17:34)
[2022-01-18 18:49] VITALS: BP 127/61
[2022-01-18] MEDS: oxyBUTYnin *DITROPAN XL* 5 MG TABCR PO SCH (21:14)
[2022-01-18] MEDS: PRAZOSIN 1 MG CAP PO SCH (21:14)
[2022-01-18] MEDS: FINASTERIDE 5MG TAB PO SCH (21:14)
[2022-01-18] MEDS: BENZTROPINE 0.5 MG TAB PO SCH (21:14)
[2022-01-18] MEDS: risperiDONE 2 MG TAB PO SCH (21:16)
[2022-01-18] MEDS: ROSUVASTATIN 10 MG TAB (CRESTOR) PO SCH (21:16)
[2022-01-19 07:08] VITALS: BP 119/62
[2022-01-19] MEDS: NICOTINE 21MG/24HR 1 EA TRANSDERMAL TD SCH (09:00)
[2022-01-19] MEDS: buPROPion (WELLBUTRIN SR) 100 MG SR TAB PO SCH ×2 (10:30→20:37)
[2022-01-19] MEDS: DOCUSATE SODIUM 100MG CAPSULE PO SCH ×2 (10:30→20:38)
[2022-01-19] MEDS: BENZTROPINE 0.5 MG TAB PO SCH ×2 (10:30→20:37)
[2022-01-19] MEDS: DIVALPROEX 250MG *ER* TAB PO SCH ×2 (10:30→20:37)
[2022-01-19] MEDS: busPIRone 5 MG TAB PO SCH ×2 (10:31→20:37)
[2022-01-19] MEDS: SENNA 8.6 MG TAB (SENOKOT) PO SCH ×2 (10:31→20:37)
[2022-01-19] MEDS: risperiDONE 0.5 MG TAB PO SCH (10:31)
[2022-01-19] MEDS: ACETAMINOPHEN TAB 650MG DOSE (2X325MG) PO PRN (10:31)
[2022-01-19] MEDS: OMEPRAZOLE 20MG CAP PO SCH (10:32)
[2022-01-19] MEDS: metFORMIN (GLUCOPHAGE) 500MG TAB PO SCH ×2 (10:32→18:26)
[2022-01-19 17:55] VITALS: BP 117/63
[2022-01-19] MEDS: FINASTERIDE 5MG TAB PO SCH (20:37)
[2022-01-19] MEDS: ROSUVASTATIN 10 MG TAB (CRESTOR) PO SCH (20:38)
[2022-01-19] MEDS: risperiDONE 2 MG TAB PO SCH (20:38)
[2022-01-19] MEDS: oxyBUTYnin *DITROPAN XL* 5 MG TABCR PO SCH (20:38)
[2022-01-19] MEDS: PRAZOSIN 1 MG CAP PO SCH (20:38)
[2022-01-20 05:55] VITALS: BP 131/81
[2022-01-20] MEDS: NICOTINE 21MG/24HR 1 EA TRANSDERMAL TD SCH ×2 (09:00→09:12)
[2022-01-20] MEDS: SENNA 8.6 MG TAB (SENOKOT) PO SCH ×2 (09:12→20:56)
[2022-01-20] MEDS: buPROPion (WELLBUTRIN SR) 100 MG SR TAB PO SCH ×2 (09:12→20:57)
[2022-01-20] MEDS: BENZTROPINE 0.5 MG TAB PO SCH ×2 (09:13→20:56)
[2022-01-20] MEDS: DIVALPROEX 250MG *ER* TAB PO SCH ×2 (09:13→20:57)
[2022-01-20] MEDS: risperiDONE 0.5 MG TAB PO SCH (09:13)
[2022-01-20] MEDS: DOCUSATE SODIUM 100MG CAPSULE PO SCH ×2 (09:13→20:56)
[2022-01-20] MEDS: OMEPRAZOLE 20MG CAP PO SCH (09:13)
[2022-01-20] MEDS: metFORMIN (GLUCOPHAGE) 500MG TAB PO SCH ×2 (09:14→17:22)
[2022-01-20] MEDS: busPIRone 5 MG TAB PO SCH ×2 (09:15→20:58)
[2022-01-20 18:00] VITALS: BP 130/65
[2022-01-20] MEDS: PRAZOSIN 1 MG CAP PO SCH (20:55)
[2022-01-20] MEDS: FINASTERIDE 5MG TAB PO SCH (20:55)
[2022-01-20] MEDS: oxyBUTYnin *DITROPAN XL* 5 MG TABCR PO SCH (20:55)
[2022-01-20] MEDS: risperiDONE 2 MG TAB PO SCH (20:57)
[2022-01-20] MEDS: ROSUVASTATIN 10 MG TAB (CRESTOR) PO SCH (21:02)
[2022-01-21 06:49] VITALS: BP 112/62
[2022-01-21] MEDS ORDERED: risperiDONE LONG-ACTING 37.5 MG/2 ML INJ (J2794 PER 0.5MG) IM SCH (09:00)
[2022-01-21] MEDS: OMEPRAZOLE 20MG CAP PO SCH (09:37)
[2022-01-21] MEDS: SENNA 8.6 MG TAB (SENOKOT) PO SCH ×2 (09:37→21:58)
[2022-01-21] MEDS: buPROPion (WELLBUTRIN SR) 100 MG SR TAB PO SCH ×2 (09:37→21:59)
[2022-01-21] MEDS: BENZTROPINE 0.5 MG TAB PO SCH ×2 (09:37→21:58)
[2022-01-21] MEDS: DOCUSATE SODIUM 100MG CAPSULE PO SCH ×2 (09:37→21:57)
[2022-01-21] MEDS: busPIRone 5 MG TAB PO SCH ×2 (09:37→21:58)
[2022-01-21] MEDS: DIVALPROEX 250MG *ER* TAB PO SCH ×2 (09:38→21:58)
[2022-01-21] MEDS: metFORMIN (GLUCOPHAGE) 500MG TAB PO SCH ×2 (09:46→18:00)
[2022-01-21 18:00] VITALS: BP 119/68
[2022-01-21] MEDS: ROSUVASTATIN 10 MG TAB (CRESTOR) PO SCH (21:57)
[2022-01-21 21:58] VITALS: BP 119/68
[2022-01-21] MEDS: oxyBUTYnin *DITROPAN XL* 5 MG TABCR PO SCH (21:58)
[2022-01-21] MEDS: PRAZOSIN 1 MG CAP PO SCH (21:58)
[2022-01-21] MEDS: risperiDONE 2 MG TAB PO SCH (21:58)
[2022-01-21] MEDS: FINASTERIDE 5MG TAB PO SCH (21:59)
[2022-01-22 06:23] VITALS: BP 135/82
[2022-01-22] MEDS: busPIRone 5 MG TAB PO SCH (09:39)
[2022-01-22] MEDS: BENZTROPINE 0.5 MG TAB PO SCH (09:39)
[2022-01-22] MEDS: SENNA 8.6 MG TAB (SENOKOT) PO SCH (09:39)
[2022-01-22] MEDS: OMEPRAZOLE 20MG CAP PO SCH (09:39)
[2022-01-22] MEDS: DOCUSATE SODIUM 100MG CAPSULE PO SCH (09:39)
[2022-01-22] MEDS: buPROPion (WELLBUTRIN SR) 100 MG SR TAB PO SCH (09:39)
[2022-01-22] MEDS: DIVALPROEX 250MG *ER* TAB PO SCH (09:39)
[2022-01-22] MEDS: metFORMIN (GLUCOPHAGE) 500MG TAB PO SCH (09:40)
[2022-01-22] MEDS ORDERED: RISP37INJ IM (09:45)
[2022-01-22] MEDS ORDERED: BUSP5TA PO (09:45)
[2022-01-22] MEDS ORDERED: DIVA250T7 PO (09:45)
[2022-01-22] MEDS ORDERED: RISP-9 PO (09:45)
[2022-01-22] MEDS ORDERED: MINI1CAP PO (09:45)
[2022-01-22] MEDS ORDERED: WELL100T2 PO (09:45)
[2022-01-22] MEDS ORDERED: METF500T13 PO (09:45)
[2022-01-22] MEDS ORDERED: BENZ0.5T23 PO (09:45)
== END 2022-01-22 11:58 | disposition home or self-care (01) | DRG 885 ==
LOC: M ED 11:01 → M ED INP 01-17 12:53 → M PSY 01-17 14:21
PROVIDERS: ADMIT Student in an Organized Health Care Education/Training Program; ATTEND Student in an Organized Health Care Education/Training Program
DX: F25.0 Schizoaffective disorder, bipolar type (principal); K90.9 Intestinal malabsorption, unspecified; F70 Mild intellectual disabilities; F43.9 Reaction to severe stress, unspecified; E11.9 Type 2 diabetes mellitus without complications; K21.9 Gastro-esophageal reflux disease without esophagitis; D64.9 Anemia, unspecified; F32.A Depression, unspecified; N40.0 Benign prostatic hyperplasia without lower urinary tract symptoms; F63.9 Impulse disorder, unspecified; E61.0 Copper deficiency; Z79.899 Other long term (current) drug therapy; D70.2 Other drug-induced agranulocytosis; Z91.14 Patient's other noncompliance with medication regimen

== ENCOUNTER → 2022-02-28 | Outpatient (REF) | payer MEDICARE, MEDICAID ==
[~2022-02-28] MED LIST changes: +BENZ0.5T23 PO; +DOCU100C16 PO; +METF500T13 PO; +PATIENT COMMENT; +RISP37INJ IM; +SYSTANE; +SYSTOIN TOP
[2022-02-28 13:39] LABS: APPEARANCE, URINE MANUAL CLEAR (CLEAR); COLOR, URINE MANUAL YELLOW (YELLOW)
[2022-02-28 13:41] LABS: BILIRUBIN, URINE MANUAL NEGATIVE (NEGATIVE); GLUCOSE, URINE (UA) MANUAL NEGATIVE (NEGATIVE); KETONE, URINE MANUAL 1+ mg/dL (NEGATIVE); NITRITE, URINE MANUAL NEGATIVE (NEGATIVE); PROTEIN, URINE MANUAL NEGATIVE (NEGATIVE); SPECIFIC GRAVITY,URINE MANUAL 1.015 (1.002-1.035); UROBILINOGEN, URINE MANUAL 1 MG mg/dl (NORMAL)
[2022-02-28 13:42] LABS: BLOOD URINE MANUAL NEGATIVE (NEGATIVE); LEUKOCYTE ESTERASE, URINE MAN NEGATIVE (NEGATIVE)
== END ==
LOC: M SMT 12:55
PROVIDERS: ATTEND Nurse Practitioner Women's Health
DX: R39.15 Urgency of urination (principal)

== ENCOUNTER → 2022-03-13 | Outpatient (CLI) | payer MEDICARE, MEDICAID | LOC: M WUC 09:39 | PROVIDERS: ATTEND Internal Medicine | DX: L03.032 Cellulitis of left toe (principal) ==

== ENCOUNTER → 2022-06-06 | Outpatient (CLI) | payer MEDICARE, MEDICAID | LOC: M LAB 11:21 | PROVIDERS: ATTEND Internal Medicine Hematology & Oncology | DX: E61.0 Copper deficiency (principal) ==

== ENCOUNTER → 2022-09-09 | Outpatient (CLI) | payer MEDICARE, MEDICAID ==
[~2022-09-09] MED LIST changes: +ALFU10TA3; +MELA2.5C4 PO; +NYST10OI
[2022-09-09 09:11] LABS: FOLATE 18.6 NG/ML (>5.4)
== END ==
LOC: M LAB 07:53
PROVIDERS: ATTEND Psychiatry & Neurology Neurology
DX: G62.9 Polyneuropathy, unspecified (principal); E53.8 Deficiency of other specified B group vitamins

== ENCOUNTER → 2022-09-18 | Outpatient (REF) | payer MEDICARE, MEDICAID ==
[~2022-09-18] MED LIST changes: +SENN-186 PO; -SENN-80 PO
[2022-09-18 18:57] LABS: APPEARANCE, URINE HAZY (CLEAR); BACTERIA, URINE AUTO 2+ (NEGATIVE); BILIRUBIN, URINE AUTO NEGATIVE (NEGATIVE); BLOOD, URINE BLOOD NEGATIVE (NEGATIVE); COLOR, URINE YELLOW (YELLOW); GLUCOSE, URINE (UA) AUTO NEGATIVE (NEGATIVE); KETONE, URINE AUTO TRACE mg/dL (NEGATIVE); LEUKOCYTE ESTERASE, URINE AUTO 2+ (NEGATIVE); MUCUS, URINE SMALL (NEGATIVE); NITRITE, URINE AUTO NEGATIVE (NEGATIVE); PROTEIN, URINE AUTO NEGATIVE (NEGATIVE); RBC, URINE AUTO 1 /HPF (0-3); SPECIFIC GRAVITY URINE AUTO 1.026 (1.002-1.035); SQUAMOUS EPITHELIAL CELL UR AU 0 /HPF (0-6); WBC, URINE AUTO 76 /HPF (0-3)
== END ==
LOC: M SMT 18:10
PROVIDERS: ATTEND Urology
DX: R30.0 Dysuria (principal)

== ENCOUNTER → 2022-10-27 | Outpatient (CLI) | payer MEDICARE, MEDICAID ==
[~2022-10-27] MED LIST changes: +BENZ0.5T2 PO; -BENZ0.5T23 PO
== END ==
LOC: M RAD 13:41
DX: M25.472 Effusion, left ankle (principal); M85.872 Other specified disorders of bone density and structure, left ankle and foot

== ENCOUNTER → 2022-11-04 | Outpatient (CLI) | payer MEDICARE, MEDICAID ==
[2022-11-04 15:26] LABS: APPEARANCE, URINE CLEAR (CLEAR); BACTERIA, URINE AUTO NEGATIVE (NEGATIVE); BILIRUBIN, URINE AUTO NEGATIVE (NEGATIVE); BLOOD, URINE BLOOD NEGATIVE (NEGATIVE); CALCIUM OXALATE CRYSTALS SMALL; COLOR, URINE YELLOW (YELLOW); GLUCOSE, URINE (UA) AUTO 1+ mg/dL (NEGATIVE); KETONE, URINE AUTO NEGATIVE (NEGATIVE); LEUKOCYTE ESTERASE, URINE AUTO NEGATIVE (NEGATIVE); NITRITE, URINE AUTO NEGATIVE (NEGATIVE); PROTEIN, URINE AUTO NEGATIVE (NEGATIVE); RBC, URINE AUTO 0 /HPF (0-3); SPECIFIC GRAVITY URINE AUTO 1.014 (1.002-1.035); SQUAMOUS EPITHELIAL CELL UR AU 0 /HPF (0-6); UROBILINOGEN, URINE AUTO 0.2 mg/dL (0.0-2.0); WBC, URINE AUTO 0 /HPF (0-3)
== END ==
LOC: M WUC 09:31
PROVIDERS: ATTEND Urology
DX: R30.0 Dysuria (principal)

== ENCOUNTER 2023-05-30 09:04 | Emergency (ER) | payer MEDICARE, MEDICAID ==
[~2023-05-30] VITALS: Ht 180.3 cm; Wt 81.8 kg
[~2023-05-30 09:04] MED LIST changes: +ACET-683 PO; +TRAM50TA2
[2023-05-30] MEDS ORDERED: ACETAMINOPHEN 500 MG TAB PO ONE (09:20)
[2023-05-30 09:24] VITALS: BP 124/79; TEMP 97.9; O2SAT 99
== END 2023-05-30 14:59 | disposition home or self-care (01) ==
LOC: EDBD 09:04 → M ED 09:04
DX: F43.24 Adjustment disorder with disturbance of conduct (principal); M65.221 Calcific tendinitis, right upper arm; M19.011 Primary osteoarthritis, right shoulder; F79 Unspecified intellectual disabilities; F25.9 Schizoaffective disorder, unspecified; F31.9 Bipolar disorder, unspecified; E61.0 Copper deficiency

== ENCOUNTER → 2023-06-18 | Outpatient (CLI) | payer MEDICARE, MEDICAID ==
[2023-06-18 08:11] LABS: HEMATOCRIT 39.1 % (42.0-52.0); MEAN CORPUSCULAR HEMOGLOBIN 30.8 pg (27.0-33.0); MEAN CORPUSCULAR HGB CONC 33.2 g/dl (32.0-36.5); MEAN CORPUSCULAR VOLUME 92.7 fl (80.0-96.0); PLATELET COUNT, AUTOMATED 299 10^3/uL (150-450); RED BLOOD COUNT 4.22 10^6/uL (4.30-6.10)
[2023-06-18 08:41] LABS: ALBUMIN 3.3 G/DL (3.2-5.2); ALKALINE PHOSPHATASE 49 U/L (46-116); ALT/SGPT 17 U/L (7.0-40); AST/SGOT 9 U/L (<34); BILIRUBIN,TOTAL 0.5 MG/DL (0.3-1.2); BLOOD UREA NITROGEN 22 MG/DL (9-23); CALCIUM LEVEL 8.7 MG/DL (8.3-10.6); CARBON DIOXIDE LEVEL 27 MMOL/L (20-31); CHLORIDE LEVEL 109 MMOL/L (98-107); CHOLESTEROL LEVEL 94 MG/DL (<200); GLOMERULAR FILTRATION RATE > 60.0 (>49); GLUCOSE, FASTING 116 MG/DL (74-106); HDL CHOLESTEROL 40.7 MG/DL (>40); LDL CHOLESTEROL 35.1 MG/DL (<100); NON-HDL-C 53.3 MG/DL; POTASSIUM SERUM 4.4 MMOL/L (3.5-5.1); SODIUM LEVEL 142 MMOL/L (136-145); TOTAL PROTEIN 6.3 G/DL (5.7-8.2); TRIGLYCERIDES LEVEL 91 MG/DL (<150)
[2023-06-19 06:49] LABS: WHITE BLOOD COUNT 5.5 10^3/uL (4.0-10.0)
== END ==
LOC: M LAB 07:01
PROVIDERS: ATTEND Internal Medicine
DX: E78.5 Hyperlipidemia, unspecified (principal); R73.01 Impaired fasting glucose

== ENCOUNTER 2023-09-16 21:21 | Emergency (ER) | payer MEDICARE, MEDICAID ==
[~2023-09-16 21:21] MED LIST changes: +DIVA125C6 PO; +GUAI100L6 PO; +IBUP200T46 PO; +MELATAB7 PO; +MIRA3350 PO; +NYST100084; -NYST10OI; +RISP-106 PO; -RISP-7 PO; -RISP-9 PO; +RISP0.5T82; +RISP0.5T82 PO; +TRAZ-252; +VITA-148 PO
[2023-09-16 22:21] LABS: BASO % 0.4 % (0.0-1.0); EOS % 0.8 % (0.0-3.0); HEMATOCRIT 38.8 % (42.0-52.0); HEMOGLOBIN 13.1 g/dl (13.5-17.5); LYMPH # 1.3 10^3/uL (1.5-5.0); LYMPH % 24.8 % (24.0-44.0); MEAN CORPUSCULAR HEMOGLOBIN 31.2 pg (27.0-33.0); MEAN CORPUSCULAR HGB CONC 33.8 g/dl (32.0-36.5); MEAN CORPUSCULAR VOLUME 92.4 fl (80.0-96.0); MONO # 0.6 10^3/uL (0.0-0.8); MONO % 11.5 % (2.0-8.0); NEUTROPHILS # 3.3 10^3/uL (1.5-8.5); NEUTROPHILS % 62.3 % (36.0-66.0); PLATELET COUNT, AUTOMATED 214 10^3/uL (150-450); WHITE BLOOD COUNT 5.2 10^3/uL (4.0-10.0)
[2023-09-16 22:54] LABS: ETHYL ALCOHOL (ETHANOL) < 0.003 % (0.000-0.010)
[2023-09-16 22:56] LABS: ALBUMIN 3.7 G/DL (3.2-5.2); ALKALINE PHOSPHATASE 45 U/L (46-116); ALT/SGPT 24 U/L (7.0-40); AST/SGOT 8 U/L (<34); BILIRUBIN,DIRECT 0.2 MG/DL (<0.4); BILIRUBIN,TOTAL 0.5 MG/DL (0.3-1.2); BLOOD UREA NITROGEN 30 MG/DL (9-23); CALCIUM LEVEL 9.1 MG/DL (8.3-10.6); CARBON DIOXIDE LEVEL 24 MMOL/L (20-31); CHLORIDE LEVEL 107 MMOL/L (98-107); CREATININE FOR GFR 0.52 MG/DL (0.70-1.30); GLOMERULAR FILTRATION RATE > 60.0 (>49); GLUCOSE, FASTING 149 MG/DL (74-106); POTASSIUM SERUM 4.1 MMOL/L (3.5-5.1); SALICYLATE LEVEL < 3.0 MG/DL (<30); SODIUM LEVEL 138 MMOL/L (136-145); TOTAL PROTEIN 6.5 G/DL (5.7-8.2)
[2023-09-16 22:58] LABS: THYROID STIMULATING HORMONE 2.732 uIU/ML (0.55-4.78)
[2023-09-17 01:50] LABS: AMPHETAMINES LEVEL URINE NEGATIVE (NEGATIVE); BARBITURATES URINE NEGATIVE (NEGATIVE); BENZODIAZEPINES URINE NEGATIVE (NEGATIVE); CANNABINOIDS URINE NEGATIVE (NEGATIVE); COCAINE METABOLITE URINE NEGATIVE (NEGATIVE); METHADONE URINE NEGATIVE (NEGATIVE); OPIATES URINE NEGATIVE (NEGATIVE); PHENCYCLIDINE URINE NEGATIVE (NEGATIVE)
[2023-09-17 03:59] VITALS: BP 127/89; TEMP 97.3; O2SAT 96
== END 2023-09-17 04:41 | disposition home or self-care (01) ==
LOC: M ED 21:21
DX: U07.1 COVID-19 (principal); F43.0 Acute stress reaction; F20.9 Schizophrenia, unspecified; N40.0 Benign prostatic hyperplasia without lower urinary tract symptoms; Z79.810 Long term (current) use of selective estrogen receptor modulators (SERMs); Z79.83 Long term (current) use of bisphosphonates; Z79.899 Other long term (current) drug therapy
CPT/HCPCS: 36415; 80048; 80076; 80143; 80307; 81001; 82077; 84443; 85025; 87635; 93005; 99284; G0463

== ENCOUNTER → 2023-12-02 | Outpatient (CLI) | payer MEDICARE, MEDICAID ==
[~2023-12-02] MED LIST changes: +CYCL5TAB
[2023-12-02 12:54] LABS: LIPASE 34 U/L (12-53)
[2023-12-02 12:56] LABS: AMYLASE 80 U/L (30-118)
[2023-12-02 12:57] LABS: ALBUMIN 3.4 G/DL (3.2-5.2); ALKALINE PHOSPHATASE 46 U/L (46-116); ALT/SGPT 44 U/L (7.0-40); AST/SGOT 18 U/L (<34); BILIRUBIN,TOTAL 0.5 MG/DL (0.3-1.2); BLOOD UREA NITROGEN 23 MG/DL (9-23); CALCIUM LEVEL 9.3 MG/DL (8.3-10.6); CARBON DIOXIDE LEVEL 31 MMOL/L (20-31); CHLORIDE LEVEL 107 MMOL/L (98-107); CHOLESTEROL LEVEL 97 MG/DL (<200); CHOLESTEROL RISK RATIO 1.75 (<5); CREATININE FOR GFR 0.68 MG/DL (0.70-1.30); GLOMERULAR FILTRATION RATE > 60.0 (>49); GLUCOSE, FASTING 97 MG/DL (74-106); HDL CHOLESTEROL 55.3 MG/DL (>40); LDL CHOLESTEROL 27.7 MG/DL (<100); NON-HDL-C 41.7 MG/DL; SODIUM LEVEL 143 MMOL/L (136-145); THYROID STIMULATING HORMONE 1.423 uIU/ML (0.55-4.78); TRIGLYCERIDES LEVEL 70 MG/DL (<150)
[2023-12-02 13:39] LABS: HEMOGLOBIN A1c 5.6 % (4.0-6.0)
== END ==
LOC: M WUC 09:32
PROVIDERS: ATTEND Internal Medicine
DX: R73.01 Impaired fasting glucose (principal); E78.5 Hyperlipidemia, unspecified

== ENCOUNTER → 2023-12-11 | Outpatient (CLI) | payer MEDICARE, MEDICAID | LOC: M PLARAD 10:36 | PROVIDERS: ATTEND Internal Medicine | DX: R41.82 Altered mental status, unspecified (principal) ==

== ENCOUNTER → 2024-02-16 | Outpatient (CLI) | payer MEDICARE, MEDICAID ==
[~2024-02-16] MED LIST changes: +ALFU10TA23; -ALFU10TA3
[2024-02-16 11:00] LABS: BASO % 0.3 % (0.0-1.0); EOS % 0.8 % (0.0-3.0); HEMATOCRIT 41.9 % (42.0-52.0); HEMOGLOBIN 13.8 g/dl (13.5-17.5); LYMPH # 1.4 10^3/uL (1.5-5.0); LYMPH % 37.2 % (24.0-44.0); MEAN CORPUSCULAR HEMOGLOBIN 31.2 pg (27.0-33.0); MEAN CORPUSCULAR HGB CONC 32.9 g/dl (32.0-36.5); MEAN CORPUSCULAR VOLUME 94.8 fl (80.0-96.0); MONO # 0.5 10^3/uL (0.0-0.8); NEUTROPHILS # 1.8 10^3/uL (1.5-8.5); NEUTROPHILS % 48.4 % (36.0-66.0); PLATELET COUNT, AUTOMATED 220 10^3/uL (150-450); RED BLOOD COUNT 4.42 10^6/uL (4.30-6.10); WHITE BLOOD COUNT 3.8 10^3/uL (4.0-10.0)
[2024-02-16 11:08] LABS: HEMOGLOBIN A1c 5.6 % (4.0-6.0)
[2024-02-16 11:32] LABS: VALPROIC ACID (DEPAKOTE) 29.3 UG/ML (50.0-100.0)
[2024-02-16 11:35] LABS: PROLACTIN 23.04 NG/ML (2.1-17.7)
[2024-02-16 12:02] LABS: ALBUMIN 3.9 G/DL (3.2-5.2); ALKALINE PHOSPHATASE 57 U/L (46-116); ALT/SGPT 29 U/L (7.0-40); AST/SGOT 10 U/L (<34); BILIRUBIN,TOTAL 0.8 MG/DL (0.3-1.2); BLOOD UREA NITROGEN 17 MG/DL (9-23); CALCIUM LEVEL 9.3 MG/DL (8.3-10.6); CARBON DIOXIDE LEVEL 29 MMOL/L (20-31); CHLORIDE LEVEL 105 MMOL/L (98-107); CHOLESTEROL LEVEL 130 MG/DL (<200); CHOLESTEROL RISK RATIO 2.06 (<5); GLOMERULAR FILTRATION RATE > 60.0 (>49); GLUCOSE, FASTING 86 MG/DL (74-106); LDL CHOLESTEROL 52.4 MG/DL (<100); POTASSIUM SERUM 4.3 MMOL/L (3.5-5.1); SODIUM LEVEL 140 MMOL/L (136-145); TOTAL PROTEIN 6.9 G/DL (5.7-8.2); TRIGLYCERIDES LEVEL 73 MG/DL (<150)
== END ==
LOC: M PLALAB 09:13
PROVIDERS: ATTEND Physician Assistant
DX: Z79.899 Other long term (current) drug therapy (principal)

== ENCOUNTER → 2024-02-25 | Outpatient (REF) | payer MEDICARE, MEDICAID ==
[~2024-02-25] MED LIST changes: +ROSU5TAB40
[2024-02-25 12:13] LABS: APPEARANCE, URINE CLEAR (CLEAR); BACTERIA, URINE AUTO NEGATIVE (NEGATIVE); BILIRUBIN, URINE AUTO NEGATIVE (NEGATIVE); BLOOD, URINE BLOOD NEGATIVE (NEGATIVE); COLOR, URINE YELLOW (YELLOW); GLUCOSE, URINE (UA) AUTO NEGATIVE (NEGATIVE); KETONE, URINE AUTO NEGATIVE (NEGATIVE); LEUKOCYTE ESTERASE, URINE AUTO NEGATIVE (NEGATIVE); NITRITE, URINE AUTO NEGATIVE (NEGATIVE); PROTEIN, URINE AUTO NEGATIVE (NEGATIVE); RBC, URINE AUTO 0 /HPF (0-3); SPECIFIC GRAVITY URINE AUTO 1.018 (1.002-1.035); SQUAMOUS EPITHELIAL CELL UR AU 0 /HPF (0-6); WBC, URINE AUTO 1 /HPF (0-3)
== END ==
LOC: M LAB REF 11:08
PROVIDERS: ATTEND Physician Assistant
DX: N39.0 Urinary tract infection, site not specified (principal); Z60.8 Other problems related to social environment

== ENCOUNTER → 2024-04-06 | Outpatient (REF) | payer MEDICARE, MEDICAID | LOC: M LAB REF 16:18 | PROVIDERS: ATTEND Nurse Practitioner Family | DX: R30.0 Dysuria (principal) ==

== ENCOUNTER 2024-08-03 12:04 | Emergency (ER) | payer MEDICARE, MEDICAID ==
[~2024-08-03] VITALS: Ht 180.3 cm; Wt 70.6 kg
[~2024-08-03 12:04] MED LIST changes: -ALFU10TA23; +ALFU10TA23 PO; -CYCL5TAB; -CYCL5TAB PO; +CYCL5TAB4; +CYCL5TAB4 PO; -RISP0.5T82; -ROSU5TAB40; +ROSU5TAB49 PO
[2024-08-03 14:35] LABS: BASO % 0.3 % (0.0-1.0); HEMATOCRIT 38.1 % (42.0-52.0); HEMOGLOBIN 12.6 g/dl (13.5-17.5); LYMPH # 1.4 10^3/uL (1.5-5.0); LYMPH % 36.5 % (24.0-44.0); MEAN CORPUSCULAR HEMOGLOBIN 30.1 pg (27.0-33.0); MEAN CORPUSCULAR HGB CONC 33.1 g/dl (32.0-36.5); MEAN CORPUSCULAR VOLUME 91.1 fl (80.0-96.0); MONO # 0.4 10^3/uL (0.0-0.8); MONO % 10.9 % (2.0-8.0); PLATELET COUNT, AUTOMATED 206 10^3/uL (150-450); RED BLOOD COUNT 4.18 10^6/uL (4.30-6.10); WHITE BLOOD COUNT 3.9 10^3/uL (4.0-10.0)
[2024-08-03 15:01] LABS: BLOOD UREA NITROGEN 31 MG/DL (9-23); CALCIUM LEVEL 8.8 MG/DL (8.3-10.6); CARBON DIOXIDE LEVEL 26 MMOL/L (20-31); CHLORIDE LEVEL 109 MMOL/L (98-107); CREATININE FOR GFR 0.55 MG/DL (0.70-1.30); GLOMERULAR FILTRATION RATE > 60.0 (>49); GLUCOSE, FASTING 88 MG/DL (74-106); POTASSIUM SERUM 4.8 MMOL/L (3.5-5.1); SODIUM LEVEL 143 MMOL/L (136-145)
[2024-08-03] MEDS: NS 500 ML IV ONE ×2 (15:10→20:15)
[2024-08-03] MEDS ORDERED: FLEET OIL RETENTION ENEMA PR PRN ×2 (15:25→19:55)
[2024-08-03] MEDS: FLEET OIL RETENTION ENEMA PR ONE (15:43)
[2024-08-03] MEDS ORDERED: SYST1SOL OU (19:12)
[2024-08-03] MEDS ORDERED: RISP0.5T82 PO (19:12)
[2024-08-03] MEDS ORDERED: DEBR6.5S4 AU (19:12)
[2024-08-03] MEDS ORDERED: BUPR1TAB52 PO ×2 (19:12)
[2024-08-03] MEDS ORDERED: BENZ1TAB5 PO (19:12)
[2024-08-03] MEDS ORDERED: HOME MED LIST COMPLETE! XX SCH (19:15)
[2024-08-03] MEDS ORDERED: guaiFENesin SYRUP 200MG 10ML UDC PO PRN (19:55)
[2024-08-03] MEDS ORDERED: DEXTROSE 50% 50ML SYRINGE IV PRN (20:05)
[2024-08-03] MEDS ORDERED: GLUCAGON INJ 1MG VIAL SC PRN (20:05)
[2024-08-03] MEDS ORDERED: GLUCOSE 4 GM CHEW PO PRN (20:05)
[2024-08-03] MEDS ORDERED: PILL CUTTER 1 EACH XX PRN (20:15)
[2024-08-03] MEDS: INSULIN LISPRO (NovoLOG) PER UNIT SC SCH (21:00)
[2024-08-03] MEDS: MIRALAX *UNIT DOSE* 17GM PACKET PO SCH (21:03)
[2024-08-03] MEDS: SENNA 8.6 MG TAB (SENOKOT) PO SCH (21:04)
[2024-08-03] MEDS: FINASTERIDE 5MG TAB PO SCH (21:04)
[2024-08-03] MEDS: OMEPRAZOLE 20MG CAP PO SCH (21:04)
[2024-08-03] MEDS: ROSUVASTATIN 10 MG TAB (CRESTOR) PO SCH (21:05)
[2024-08-03] MEDS: busPIRone 5 MG TAB PO SCH (21:06)
[2024-08-03] MEDS: ACETAMINOPHEN 500 MG TAB PO SCH (21:06)
[2024-08-03] MEDS: LACTULOSE 20GM/30ML SYRUP UDC PO SCH (21:07)
[2024-08-03] MEDS: DIVALPROEX SPRINKLE 125 MG CAP PO SCH (21:07)
[2024-08-03] MEDS: RISPERIDONE 1 MG TAB PO SCH (21:07)
[2024-08-03] MEDS: BENZTROPINE 1 MG TAB PO SCH (21:18)
[2024-08-03] MEDS: buPROPion (WELLBUTRIN SR) 100 MG SR TAB PO SCH (21:20)
[2024-08-03] MEDS: POLYVINYL ALCOHOL OPHTH SOLN 15ML (LIQUITEARS) OU SCH (21:21)
[2024-08-04] MEDS ORDERED: INSULIN LISPRO (NovoLOG) PER UNIT SC SCH (07:30)
[2024-08-04] MEDS: ENOXAPARIN 40MG/0.4ML SYRINGE (J1650 PER 10MG) SC SCH (08:33)
[2024-08-04] MEDS: risperiDONE 0.5 MG TAB PO SCH (08:34)
[2024-08-04] MEDS: buPROPion (WELLBUTRIN SR) 100 MG SR TAB PO SCH (09:56)
[2024-08-04] MEDS ORDERED: LACT10SO94 PO (10:22)
[2024-08-04 11:50] VITALS: BP 109/55; TEMP 98.2; O2SAT 98
[2024-08-04] MEDS: BISACODYL 10MG SUPP PR SCH (11:53)
== END 2024-08-04 12:23 | disposition home or self-care (01) ==
LOC: M ED 12:04
DX: K56.41 Fecal impaction (principal); I45.10 Unspecified right bundle-branch block; E11.9 Type 2 diabetes mellitus without complications; K21.9 Gastro-esophageal reflux disease without esophagitis; E78.5 Hyperlipidemia, unspecified; F79 Unspecified intellectual disabilities; Z79.1 Long term (current) use of non-steroidal anti-inflammatories (NSAID); Z79.899 Other long term (current) drug therapy
CPT/HCPCS: 74018; 80048; 83605; 85025; 93005; 96372; 99285; J1650

== ENCOUNTER → 2024-09-15 | Outpatient (REF) | payer MEDICARE, MEDICAID ==
[~2024-09-15] MED LIST changes: +BENZ1TAB5 PO; +BUPR1TAB52 PO; +DEBR6.5S4 AU; +LACT10SO94 PO; +MULT1CAP20 PO; +SYST1SOL OU
[2024-09-15 17:52] LABS: APPEARANCE, URINE CLEAR (CLEAR); BACTERIA, URINE AUTO NEGATIVE (NEGATIVE); BILIRUBIN, URINE AUTO NEGATIVE (NEGATIVE); BLOOD, URINE BLOOD NEGATIVE (NEGATIVE); COLOR, URINE YELLOW (YELLOW); GLUCOSE, URINE (UA) AUTO NEGATIVE (NEGATIVE); KETONE, URINE AUTO TRACE mg/dL (NEGATIVE); LEUKOCYTE ESTERASE, URINE AUTO NEGATIVE (NEGATIVE); MUCUS, URINE SMALL (NEGATIVE); NITRITE, URINE AUTO NEGATIVE (NEGATIVE); PROTEIN, URINE AUTO NEGATIVE (NEGATIVE); RBC, URINE AUTO 0 /HPF (0-3); SPECIFIC GRAVITY URINE AUTO 1.028 (1.002-1.035); SQUAMOUS EPITHELIAL CELL UR AU 0 /HPF (0-6); WBC, URINE AUTO 0 /HPF (0-3)
== END ==
LOC: M SMT 16:59
PROVIDERS: ATTEND Urology
DX: N40.0 Benign prostatic hyperplasia without lower urinary tract symptoms (principal)

== ENCOUNTER → 2024-09-20 | Outpatient (REF) | payer MEDICARE, MEDICAID | LOC: M LABWUC 18:06 | PROVIDERS: ATTEND Urology | DX: Z12.5 Encounter for screening for malignant neoplasm of prostate (principal) | CPT/HCPCS: 36415; G0103 ==

== ENCOUNTER → 2025-01-04 | Outpatient (REF) | payer MEDICARE, MEDICAID ==
[~2025-01-04] MED LIST changes: +BUPR-670 PO; -BUPR1TAB52 PO; -DEPA250T32 PO; +DIVA-65 PO; +ESSETAB4 PO; +ONETAB9 PO
== END ==
LOC: M LAB REF 20:40
PROVIDERS: ATTEND Physician Assistant
DX: R30.0 Dysuria (principal)

== ENCOUNTER → 2025-01-06 | Outpatient (REF) | payer MEDICARE, MEDICAID | LOC: M LAB REF 11:47 | PROVIDERS: ATTEND Student in an Organized Health Care Education/Training Program | DX: R30.0 Dysuria (principal) ==

== ENCOUNTER → 2025-02-08 | Outpatient (CLI) | payer MEDICARE, MEDICAID ==
[2025-02-08 13:53] LABS: VALPROIC ACID (DEPAKOTE) 30.0 UG/ML (50.0-100.0)
[2025-02-08 13:56] LABS: ALT/SGPT 69 U/L (7.0-40); AST/SGOT 23 U/L (<34); CALCIUM LEVEL 8.8 MG/DL (8.3-10.6); CARBON DIOXIDE LEVEL 31 MMOL/L (20-31); CHLORIDE LEVEL 105 MMOL/L (98-107); CHOLESTEROL LEVEL 119 MG/DL (<200); CHOLESTEROL RISK RATIO 2.04 (<5); CREATININE FOR GFR 0.71 MG/DL (0.70-1.30); GLOMERULAR FILTRATION RATE > 90.0 (>49); LDL CHOLESTEROL 44.1 MG/DL (<100); NON-HDL-C 60.7 MG/DL; POTASSIUM SERUM 4.3 MMOL/L (3.5-5.1); SODIUM LEVEL 145 MMOL/L (136-145); TRIGLYCERIDES LEVEL 83 MG/DL (<150)
[2025-02-08 13:57] LABS: PROLACTIN 21.31 NG/ML (2.1-17.7)
[2025-02-08 13:58] LABS: BASO # 0.0 10^3/uL (0.0-0.2); BASO % 0.3 % (0.0-1.0); EOS # 0.0 10^3/uL (0.0-0.5); EOS % 0.7 % (0.0-3.0); LYMPH # 1.5 10^3/uL (1.5-5.0); LYMPH % 24.8 % (24.0-44.0); MONO # 0.6 10^3/uL (0.0-0.8); MONO % 10.9 % (2.0-8.0); NEUTROPHILS # 3.7 10^3/uL (1.5-8.5); NEUTROPHILS % 63.0 % (36.0-66.0); PLATELET COUNT, AUTOMATED 184 10^3/uL (150-450)
[2025-02-08 14:06] LABS: ESTIMATED AVERAGE GLUCOSE 123.0 MG/DL (60-110)
== END ==
LOC: M WUC 08:27
PROVIDERS: ATTEND Physician Assistant
DX: Z79.899 Other long term (current) drug therapy (principal)

== ENCOUNTER → 2025-02-24 | Outpatient (CLI) | payer MEDICARE, MEDICAID ==
[2025-02-24 17:32] LABS: ALT/SGPT 54 U/L (7.0-40); AST/SGOT 27 U/L (<34); CALCIUM LEVEL 8.7 MG/DL (8.3-10.6); CARBON DIOXIDE LEVEL 30 MMOL/L (20-31); CHLORIDE LEVEL 104 MMOL/L (98-107); CHOLESTEROL LEVEL 96 MG/DL (<200); CHOLESTEROL RISK RATIO 1.73 (<5); CREATININE FOR GFR 0.61 MG/DL (0.70-1.30); GLOMERULAR FILTRATION RATE > 90.0 (>49); LDL CHOLESTEROL 27.5 MG/DL (<100); NON-HDL-C 40.7 MG/DL; POTASSIUM SERUM 4.5 MMOL/L (3.5-5.1); SODIUM LEVEL 143 MMOL/L (136-145); TRIGLYCERIDES LEVEL 66 MG/DL (<150)
== END ==
LOC: M WUC 15:07
PROVIDERS: ATTEND Internal Medicine
DX: E78.5 Hyperlipidemia, unspecified (principal)

== ENCOUNTER → 2025-04-26 | Outpatient (REF) | payer MEDICARE, MEDICAID, OTHER ==
[2025-04-26 18:31] LABS: APPEARANCE, URINE CLEAR (CLEAR); BACTERIA, URINE AUTO 1+ (NEGATIVE); BILIRUBIN, URINE AUTO NEGATIVE (NEGATIVE); BLOOD, URINE BLOOD NEGATIVE (NEGATIVE); GLUCOSE, URINE (UA) AUTO NEGATIVE (NEGATIVE); KETONE, URINE AUTO NEGATIVE (NEGATIVE); LEUKOCYTE ESTERASE, URINE AUTO NEGATIVE (NEGATIVE); NITRITE, URINE AUTO NEGATIVE (NEGATIVE); PROTEIN, URINE AUTO NEGATIVE (NEGATIVE); RBC, URINE AUTO 0 /HPF (0-3); SPECIFIC GRAVITY URINE AUTO 1.014 (1.002-1.035); SQUAMOUS EPITHELIAL CELL UR AU 0 /HPF (0-6); UROBILINOGEN, URINE AUTO 0.2 mg/dL (0.0-2.0); WBC, URINE AUTO 0 /HPF (0-3)
== END ==
LOC: M LAB REF 17:26
PROVIDERS: ATTEND Physician Assistant Medical
DX: N39.0 Urinary tract infection, site not specified (principal)